=== PATIENT | male | born 1980 | race Caucasian/White ===

== ENCOUNTER 2017-12-08 21:09 | Emergency (ER) | payer MEDICAID ==
[~2017-12-08] VITALS: Ht 182.9 cm; Wt 95.3 kg
[2017-12-08] MEDS ORDERED: Naloxone 1mg/ml 2ml IVP ONE (21:30)
[2017-12-08 21:44] LABS: BASOPHILS % (AUTO) 0.9 % (0.0-2.0); EOSINOPHILS % (AUTO) 1.5 % (0.0-3.0); HEMATOCRIT 45.4 % (42.0-52.0); HEMOGLOBIN 15.9 G/DL (14.2-18.0); LYMPHOCYTES % (AUTO) 24.9 % (20.0-45.0); MEAN CORPUSCULAR VOLUME 93 FL (80-99); NEUTROPHILS % (AUTO) 64.6 % (45.0-75.0); PLATELET COUNT 306 K/UL (150-450); RED BLOOD COUNT 4.89 M/UL (4.70-6.10); WHITE BLOOD COUNT 8.9 K/UL (4.8-10.8)
[2017-12-08 21:48] LABS: APPEARANCE,URINE CLEAR; BILIRUBIN, URINE NEGATIVE (NEGATIVE); COLOR,URINE PALE YELLOW; GLUCOSE, URINE (UA) NEGATIVE (NEGATIVE); KETONES,URINE 2+ (NEGATIVE); LEUKOCYTE ESTERASE ,URINE NEGATIVE (NEGATIVE); NITRITE,URINE NEGATIVE (NEGATIVE); PH,URINE 5 (4.5-8.0); PROTEIN,URINE 2+ (NEGATIVE); UROBILINOGEN,URINE 1 MG/DL (0.0-1.0)
[2017-12-08 21:50] LABS: ANION GAP 14 mmol/L (5-15); BLOOD UREA NITROGEN 19 mg/dL (7-18); CALCIUM 9.4 MG/DL (8.5-10.1); CARBON DIOXIDE 23 MMOL/L (21-32); CHLORIDE 104 MMOL/L (98-107); CREATININE 1.1 MG/DL (0.55-1.30); POTASSIUM 3.2 MMOL/L (3.5-5.1); SODIUM 141 MMOL/L (136-145)
--- NOTE | 2017-12-08 22:03 | Emergency Room Report ---
History of Present Illness General Chief Complaint: Stroke Symptoms Source: EMS Present Illness HPI Is a 37-year-old male brought in by EMS with altered mental status with possible seizure. Patient unable to give a history because he is nonresponsive. According to acquaintance, they had some alcohol and he went to the bathroom. When he came out he started acting abnormally. Is bizarre behavior and afterward. he may have had a seizure. He did have some incontinence of his urine. No tongue laceration. No other injury. He was breathing normally so Narcan was not giving. No trauma. Unknown seizure story. Allergies: Coded Allergies: UNABLE TO ASSESS (Unverified , 12/08/17) Patient History Past Medical History: unable to obtain Past Surgical History: unable to obtain Pertinent Family History: unable to obtain Immunizations: other Reviewed Nursing Documentation: PMH: Agreed; PSxH: Agreed Review of Systems All Other Systems: limited - secondary to mental status Physical Exam Vital Signs Date Time Temp Pulse Resp B/P (MAP) Pulse Ox O2 Delivery O2 Flow Rate FiO2 12/08/17 21:13 95.0 94 12 151/93 97 Room Air 95.0 Sp02 EP Interpretation: reviewed, normal General Appearance: well appearing, no apparent distress, Stupor Head: normocephalic, atraumatic Eyes: bilateral eye PERRL, bilateral eye EOMI, bilateral eye other - pupils 2 mm and reactive ENT: hearing grossly normal, normal pharynx Neck: full range of motion, supple, no meningismus Respiratory: chest non-tender, lungs clear, normal breath sounds Cardiovascular #1: regular rate, rhythm, no murmur Gastrointestinal: normal bowel sounds, non tender, no mass, no organomegaly, no bruit, non-distended Musculoskeletal: back normal, normal range of motion Neurologic: grossly normal - withdraw to painful stimuli Skin: warm/dry Medical Decision Making Diagnostic Impression: Primary Impression: Encephalopathy acute Additional Impressions: Cocaine abuse Methamphetamine abuse Proteinuria Qualified Codes: R80.9 - Proteinuria, unspecified Gamma-hydroxybutyrate (GHB) use disorder, severe ER Course Is with altered mental status. Most likely secondary to drug abuse. He does have some whitish substance in his pocket. No evidence of any trauma. No evidence of bleed. He did have urinary incontinence but no tongue laceration. We'll observe until clinical sobriety. Patient slept for several hours. Now is awake but still confused. Able to state his name and admit to using GHB. Once this wear off we'll send him home. Lab Results Impression labs unremarkable CT/MRI/US Diagnostic Results CT/MRI/US Diagnostic Results : Imaging Test Ordered: CT head Impression negative per radiologist Last Vital Signs Date Time Temp Pulse Resp B/P (MAP) Pulse Ox O2 Delivery O2 Flow Rate FiO2 12/08/17 21:13 95.0 94 12 151/93 97 Room Air 95.0 Status: improved Disposition: HOME, SELF-CARE Condition: Stable Referrals: NOT CHOSEN [facility]/MD,REFERRING (PCP) Additional Instructions: Stop using drugs. Follow-up with your doctor in 7 days. Return if worse. ZULEMA TIRADO M.D. Dec 08, 2017 22:02
[2017-12-08 22:12] VITALS: BP 149/91
[2017-12-09 00:49] VITALS: BP 155/96
[2017-12-09 02:51] VITALS: BP 148/79
[2017-12-09 02:58] VITALS: BP 148/79
--- NOTE | 2017-12-09 08:51 | Diagnostic Imaging Report ---
Indications: Altered mental status Technique: Spiral acquisitions obtained through the brain. Angled axial and coronal 5 x 5 mm slices were reconstructed. Total dose length product 1481.62 mGycm. CTDI vol(s) 70.38 mGy. Dose reduction achieved using automated exposure control Comparison: None. Findings: No acute intracranial hemorrhage or edema, mass effect, nor midline shift. Normal salmon-white differentiation. Visualized orbits and sinuses are unremarkable. Intact calvarium Impression: Negative This agrees with the preliminary interpretation provided overnight by [facility] teleradiology service. The CT scanner at [facility] is accredited by the [employer] and the scans are performed using protocols designed to limit radiation exposure to as low as reasonably achievable to attain images of sufficient resolution adequate for diagnostic evaluation.
== END 2017-12-09 02:58 | disposition home or self-care (01) ==
LOC: EDBD 21:09 → EMR 21:55
DX: G92 Toxic encephalopathy (principal); F14.10 Cocaine abuse, uncomplicated; F15.10 Other stimulant abuse, uncomplicated; R80.9 Proteinuria, unspecified
CPT/HCPCS: 36415; 70450; 80048; 80307; 80329; 81001; 85025; 96361; 96374; 96375; 99285; J2310; J2405